=== PATIENT | male | born 1955 | race Caucasian/White ===

== ENCOUNTER 2016-11-26 23:03 | Inpatient (IN) | payer OTHER ==
[2016-11-26] MEDS ORDERED: Aspirin 81 MG Tab.Chew PO ONE (23:06)
[2016-11-26] MEDS ORDERED: Sodium Chloride 0.9% 2.5 ML Syringe FLUSH PRN (23:06)
[2016-11-26] MEDS ORDERED: Albuterol/Ipratropium 3.0-0.5 MG/3 ML Neb Soln NEB ONE (23:06)
[2016-11-26] MEDS ORDERED: Sodium Chloride 0.9% 10 ML Syringe FLUSH PRN (23:06)
[2016-11-26] MEDS ORDERED: Albuterol/Ipratropium 3.0-0.5 MG/3 ML Neb Soln ONE (23:06)
[2016-11-26] MEDS ORDERED: Nitroglycerin 2% Oint 1 GM UD Packet TOP ONE (23:06)
[2016-11-26] MEDS ORDERED: methylPREDNISolone Sodium Succinate 125 MG/2 ML SDV IVPUSH ONE (23:06)
[2016-11-26] MEDS ORDERED: Sodium Chloride 0.9% 1,000 ML IV SCH (23:15)
--- NOTE | 2016-11-26 23:29 | EDM.PDOC ---
ED HISTORY OF PRESENT ILLNESS - General Chief Complaint: Respiratory Problem Stated Complaint: SHORTNESS OF BREATH Time Seen by Provider: 11/26/16 23:05 - History of Present Illness INITIAL COMMENTS - FREE TEXT/NARRATIVE: HISTORY AND PHYSICAL: History of present illness: Patient is a 61-year-old white male with a 30+ pack year history smoking quit about 6 years prior who was recently put on inhalers and antibiotics for a respiratory infection and shortness of breath he presents tonight with increasing shortness of breath he denies chest pain nausea vomiting diaphoresis or other concerns he states he has a history of hypertension but takes no medication Review of systems: As per history of present illness and below otherwise all systems reviewed and negative. Past medical history: As per history of present illness and as reviewed below otherwise noncontributory. Surgical history: As per history of present illness and as reviewed below otherwise noncontributory. Social history: No reported history of drug or alcohol abuse. Family history: As per history of present illness and as reviewed below otherwise noncontributory. Physical exam: HEENT: Atraumatic, normocephalic, pupils reactive, negative for conjunctival pallor or scleral icterus, mucous membranes moist, throat clear, neck supple, nontender, trachea midline. Lungs: Diminished bilaterally with end expiratory wheezing scant basilar crackles noted, breath sounds equal bilaterally, chest nontender. Heart: S1S2, regular, negative for clicks, rubs, or JVD. Abdomen: Soft, nondistended, nontender. Negative for masses or hepatosplenomegaly. Negative for costovertebral tenderness. Pelvis: Stable nontender. Genitourinary: Deferred. Rectal: Deferred. Extremities: Atraumatic, negative for cords or calf pain. Neurovascular unremarkable. Neuro: Awake, alert, oriented. Cranial nerves II through XII unremarkable. Cerebellum unremarkable. Motor and sensory unremarkable throughout. Exam nonfocal. Diagnostics: CBC CMP troponin PT/INR chest x-ray EKG Therapeutics: IV O2 monitor nitro paste 1 inch to chest wall aspirin 324 mg by mouth albuterol ipratropium nebulizer Solu-Medrol 125 mg IV Impression: #1 acute dyspnea #2 hypertension #3 congestive heart failure #4 COPD Definitive disposition and diagnosis as appropriate pending reevaluation and review of above. - Related Data Allergies/ADRs: Allergies Allergy/AdvReac Type Severity Reaction Status Date / Time No Known Allergies Allergy Verified 11/26/16 23:04 Home Meds: Home Meds Albuterol [Ventolin HFA] 0 gm INH ASDIRECTED 11/26/16 [History] Social & Family History - Tobacco Use Smoking Status *Q: Former Smoker (quit 3 years ago) - Alcohol Use Days Per Week of Alcohol Use: 0 - Recreational Drug Use Recreational Drug Use: No Drug Use in Last 12 Months: No ED ROS GENERAL - Review of Systems Review Of Systems: ROS reveals no pertinent complaints other than HPI. ED EXAM, GENERAL - Physical Exam Exam: See Below (See dictation) Course - Vital Signs Text/Narrative:: Patient has marked improvement of his dyspnea in the emergency department he remained without chest pain nausea vomiting or diaphoresis patient's blood pressure remained elevated and nitroglycerin drip was initiated patient will be admitted to the ICU with diagnoses of #1 CHF #2 COPD #3 dyspnea #4 hypertension #5 medical noncompliance Last Recorded V/S: Last Vital Signs Temp 37.1 C 11/26/16 23:07 Pulse 97 11/26/16 23:07 Resp 22 H 11/26/16 23:07 BP 225/141 H 11/26/16 23:07 Pulse Ox 95 11/26/16 23:07 - Orders/Labs/Meds Orders: Active Orders 24 hr Category Date Time Status Cardiac Monitoring [RC] . DIRECTED Care 11/26/16 23:05 Active EKG Documentation Completion [RC] STAT Care 11/26/16 23:05 Active Oxygen Therapy, ED [RC] ASDIRECTED Care 11/26/16 23:05 Active Pulse Oximetry [RC] ASDIRECTED Care 11/26/16 23:05 Active RT Aerosol Therapy [RC] ASDIRECTED Care 11/26/16 23:07 Active Chest 2V [CR] Stat Exams 11/26/16 23:06 Taken Nitroglycerin/D5W [Nitroglycerin 25 MG/D5W 250 ML] Med 11/27/16 00:30 Active 25 mg in 250 ml IV TITRATE Sodium Chloride 0.9% [Normal Saline] 1,000 ml Med 11/26/16 23:15 Active IV STAT Sodium Chloride 0.9% [Saline Flush] Med 11/26/16 23:06 Active 10 ml FLUSH ASDIRECTED PRN Sodium Chloride 0.9% [Saline Flush] Med 11/26/16 23:06 Active 2.5 ml FLUSH ASDIRECTED PRN Saline Lock Insert [OM.PC] Stat Oth 11/26/16 23:05 Ordered Medication Orders Sodium Chloride (Normal Saline) 1,000 mls @ 125 mls/hr IV STAT JARRELL Last Admin: 11/26/16 23:21 Dose: 125 mls/hr Nitroglycerin/Dextrose (Nitroglycerin 25 Mg/D5w 250 Ml) 25 mg in 250 mls @ 12 mls/hr IV TITRATE JARRELL; 20 MCG/MIN PRN Reason: Protocol Sodium Chloride (Saline Flush) 10 ml FLUSH ASDIRECTED PRN PRN Reason: Keep Vein Open Sodium Chloride (Saline Flush) 2.5 ml FLUSH ASDIRECTED PRN PRN Reason: Keep Vein Open Labs: Laboratory Tests 11/26/16 11/26/16 11/26/16 Range/Units 23:35 23:35 23:35 WBC 6.33 (4.0-11.0) K/uL RBC 2.98 L (4.50-5.90) M/uL Hgb 9.1 L (13.0-17.0) g/dL Hct 27.2 L (38.0-50.0) % MCV 91.3 (80.0-98.0) fL MCH 30.5 (27.0-32.0) pg MCHC 33.5 (31.0-37.0) g/dL RDW Std Deviation 44.8 (28.0-62.0) fl RDW Coeff of Marquis 14 (11.0-15.0) % Plt Count 254 (150-400) K/uL MPV 10.20 (7.40-12.00) fL Neut % (Auto) 76.8 (48.0-80.0) % Lymph % (Auto) 15.8 L (16.0-40.0) % Garvin % (Auto) 6.2 (0.0-15.0) % Eos % (Auto) 0.9 (0.0-7.0) % Baso % (Auto) 0.3 (0.0-1.5) % Neut # (Auto) 4.9 (1.4-5.7) K/uL Lymph # (Auto) 1.0 (0.6-2.4) K/uL Garvin # (Auto) 0.4 (0.0-0.8) K/uL Eos # (Auto) 0.1 (0.0-0.7) K/uL Baso # (Auto) 0.0 (0.0-0.1) K/uL Nucleated RBC % 0.0 /100WBC Nucleated RBCs # 0 K/uL INR 1.17 H (0.86-1.11) Sodium 136 (136-146) mmol/L Potassium 3.6 (3.5-5.1) mmol/L Chloride 102 (98-110) mmol/L Carbon Dioxide 18 L (21-31) mmol/L BUN 110 H (6.0-23.0) mg/dL Creatinine 8.8 H (0.6-1.5) mg/dL Est Cr Clr Drug Dosing TNP Estimated GFR (MDRD) 6.2 ml/min Glucose 119 H (60-110) mg/dL Calcium 8.0 L (8.8-10.8) mg/dL Total Bilirubin 0.2 (0.1-1.5) mg/dL AST 35 (5-40) IU/L ALT 22 (8-54) IU/L Alkaline Phosphatase 53 (40-150) Troponin I (0.0-0.29) NG/ML B-Natriuretic Peptide (<100) PG/ML Total Protein 6.2 (6.0-8.0) g/dL Albumin 3.1 L (3.5-5.0) g/dL Globulin 3.1 (2.0-3.5) g/dL Albumin/Globulin Ratio 1.0 L (1.3-2.8) 11/26/16 11/26/16 Range/Units 23:35 23:35 WBC (4.0-11.0) K/uL RBC (4.50-5.90) M/uL Hgb (13.0-17.0) g/dL Hct (38.0-50.0) % MCV (80.0-98.0) fL MCH (27.0-32.0) pg MCHC (31.0-37.0) g/dL RDW Std Deviation (28.0-62.0) fl RDW Coeff of Marquis (11.0-15.0) % Plt Count (150-400) K/uL MPV (7.40-12.00) fL Neut % (Auto) (48.0-80.0) % Lymph % (Auto) (16.0-40.0) % Garvin % (Auto) (0.0-15.0) % Eos % (Auto) (0.0-7.0) % Baso % (Auto) (0.0-1.5) % Neut # (Auto) (1.4-5.7) K/uL Lymph # (Auto) (0.6-2.4) K/uL Garvin # (Auto) (0.0-0.8) K/uL Eos # (Auto) (0.0-0.7) K/uL Baso # (Auto) (0.0-0.1) K/uL Nucleated RBC % /100WBC Nucleated RBCs # K/uL INR (0.86-1.11) Sodium (136-146) mmol/L Potassium (3.5-5.1) mmol/L Chloride (98-110) mmol/L Carbon Dioxide (21-31) mmol/L BUN (6.0-23.0) mg/dL Creatinine (0.6-1.5) mg/dL Est Cr Clr Drug Dosing Estimated GFR (MDRD) ml/min Glucose (60-110) mg/dL Calcium (8.8-10.8) mg/dL Total Bilirubin (0.1-1.5) mg/dL AST (5-40) IU/L ALT (8-54) IU/L Alkaline Phosphatase (40-150) Troponin I 0.27 (0.0-0.29) NG/ML B-Natriuretic Peptide > 3306 H (<100) PG/ML Total Protein (6.0-8.0) g/dL Albumin (3.5-5.0) g/dL Globulin (2.0-3.5) g/dL Albumin/Globulin Ratio (1.3-2.8) Meds: Medications Generic Name Dose Route Start Last Admin Trade Name Freq PRN Reason Stop Dose Admin Sodium Chloride 1,000 mls @ 125 mls/hr 11/26/16 23:15 11/26/16 23:21 Normal Saline IV 125 mls/hr STAT JARRELL Administration Nitroglycerin/Dextrose 25 mg in 250 mls @ 12 mls/hr 04/05/17 00:30 Nitroglycerin 25 Mg/D5w 250 Ml IV TITRATE JARRELL Protocol 20 MCG/MIN Sodium Chloride 10 ml 11/26/16 23:06 Saline Flush FLUSH ASDIRECTED PRN Keep Vein Open Sodium Chloride 2.5 ml 11/26/16 23:06 Saline Flush FLUSH ASDIRECTED PRN Keep Vein Open Discontinued Medications Generic Name Dose Route Start Last Admin Trade Name Freq PRN Reason Stop Dose Admin Albuterol/Ipratropium 3 ml 11/26/16 23:06 11/26/16 23:25 Duoneb 3.0-0.5 Mg/3 Ml NEB 11/26/16 23:07 3 ml ONETIME ONE Administration Albuterol/Ipratropium Confirm 11/26/16 23:06 11/26/16 23:26 Duoneb 3.0-0.5 Mg/3 Ml Administered 11/26/16 23:07 Not Given Dose 3 ml .ROUTE .STK-MED ONE Aspirin 324 mg 11/26/16 23:06 11/26/16 23:20 Aspirin PO 11/26/16 23:07 324 mg ONETIME ONE Administration Furosemide 40 mg 11/27/16 00:13 Lasix IVPUSH 11/27/16 00:14 NOW ONE Methylprednisolone Sodium Succinate 125 mg 11/26/16 23:06 11/26/16 23:21 Solu-Medrol IVPUSH 11/26/16 23:07 125 mg ONETIME ONE Administration Nitroglycerin 1 gm 11/26/16 23:06 11/26/16 23:20 Nitro-Bid 2% TOP 11/26/16 23:07 1 gm ONETIME ONE Administration Departure - Departure Time of Disposition: 00:22 Disposition: Admitted As Inpatient 68 Condition: fair Clinical Impression: Congestive heart failure, Hypertension, COPD (chronic obstructive pulmonary disease) Forms: ED Department Discharge - My Orders Last 24 Hours: My Active Orders 11/26/16 23:05 Cardiac Monitoring [RC] . DIRECTED EKG Documentation Completion [RC] STAT Oxygen Therapy, ED [RC] ASDIRECTED Pulse Oximetry [RC] ASDIRECTED Saline Lock Insert [OM.PC] Stat 11/26/16 23:06 Chest 2V [CR] Stat Sodium Chloride 0.9% [Saline Flush] 10 ml FLUSH ASDIRECTED PRN Sodium Chloride 0.9% [Saline Flush] 2.5 ml FLUSH ASDIRECTED PRN 11/26/16 23:07 RT Aerosol Therapy [RC] ASDIRECTED 11/26/16 23:15 Sodium Chloride 0.9% [Normal Saline] 1,000 ml IV STAT 11/27/16 00:30 Nitroglycerin/D5W [Nitroglycerin 25 MG/D5W 250 ML] 25 mg in 250 ml IV TITRATE - Assessment/Plan Last 24 Hours: My Active Orders 11/26/16 23:05 Cardiac Monitoring [RC] . DIRECTED EKG Documentation Completion [RC] STAT Oxygen Therapy, ED [RC] ASDIRECTED Pulse Oximetry [RC] ASDIRECTED Saline Lock Insert [OM.PC] Stat 11/26/16 23:06 Chest 2V [CR] Stat Sodium Chloride 0.9% [Saline Flush] 10 ml FLUSH ASDIRECTED PRN Sodium Chloride 0.9% [Saline Flush] 2.5 ml FLUSH ASDIRECTED PRN 11/26/16 23:07 RT Aerosol Therapy [RC] ASDIRECTED 11/26/16 23:15 Sodium Chloride 0.9% [Normal Saline] 1,000 ml IV STAT 11/27/16 00:30 Nitroglycerin/D5W [Nitroglycerin 25 MG/D5W 250 ML] 25 mg in 250 ml IV TITRATE
[2016-11-27 00:01] LABS: CHLORIDE,CL 102 mmol/L (98-110); SODIUM,NA 136 mmol/L (136-146)
[2016-11-27] MEDS ORDERED: Furosemide 40 MG/4 ML VIAL IVPUSH ONE (00:13)
[2016-11-27] MEDS ORDERED: Nitroglycerin/D5W 25 MG/250 ML BOTTLE IV SCH (00:30)
[2016-11-27] MEDS ORDERED: Acetaminophen 325 MG Tab PO PRN (00:59)
[2016-11-27] MEDS ORDERED: Albuterol/Ipratropium 3.0-0.5 MG/3 ML Neb Soln NEB PRN (00:59)
--- NOTE | 2016-11-27 01:19 | PCM.HP ---
H&P History of Present Illness - General Date of Service: 11/27/16 Admit Problem/Dx: Admission Diagnosis/Problem Admission Diagnosis/Problem CHF, Congestive heart failure Source of Information: Patient History Limitations: Reports: No limitations - History of Present Illness Initial Comments - Free Text/Narative: 61 yo man with history hypertension,but off meds quite a while experiecing worsening fatigue, exertional and orthostatic dyspnea,says he has not slept for days. denies chest pain or edema. Comes to ER with BP [id number] Onset of Symptoms: Reports: gradual Duration of Symptoms: Reports: Week(s): Improves with: Reports: None Worsens with: Reports: None Associated Symptoms: Reports: no other symptoms - Related Data Allergies/Adverse Reactions: Allergies Allergy/AdvReac Type Severity Reaction Status Date / Time No Known Allergies Allergy Verified 11/26/16 23:04 Home Medications: Home Meds Albuterol [Ventolin HFA] 0 gm INH ASDIRECTED 11/26/16 [History] Past Medical History HEENT History: Reports: Impaired vision Other HEENT History: wears glasses Cardiovascular History: Reports: Hypertension Respiratory History: Reports: Other (see below) Other Respiratory History: former smoker Gastrointestinal History: Reports: Hepatitis (interferon for hvc 6 yrs ago) - Past Surgical History Other Cardiovascular Surgeries/Procedures: off htn meds x 4-5 yrs GI Surgical History: Reports: Other (see below) Other GI Surgeries/Procedures: hernia repair x 3 Social & Family History - Family History Family Medical History: Noncontributory (M F A&W 4 brothers 3 offspring OK) - Tobacco Use Smoking Status *Q: Former Smoker (quit 3 years ago) Tobacco Use Within Last Twelve Months: No Years of Tobacco use: 30 Tobacco Use Comment: quit 6 yrs ago - Caffeine Use Caffeine Use: Reports: Coffee - Alcohol Use Days Per Week of Alcohol Use: 0 - Recreational Drug Use Recreational Drug Use: Yes Drug Use in Last 12 Months: No Recreational Drug Type: Reports: Amphetamines (Speed) (remote> 20 yr parenteral) - Living Situation & Occupation Living situation: Reports: Occupation: employed ([employer], 8yr [employer] ) H&P Review of Systems - Review of Systems: Review Of Systems: See Below General: Reports: fatigue HEENT: Reports: no symptoms Pulmonary: Reports: Shortness of Breath Cardiovascular: Reports: no symptoms Gastrointestinal: Reports: No symptoms Genitourinary: Reports: no symptoms Musculoskeletal: Reports: no symptoms Skin: Reports: no symptoms Psychiatric: Reports: no symptoms Neurological: Reports: No Symptoms Hematologic/Lymphatic: Reports: no symptoms Immunologic: Reports: no symptoms Exam - Exam Exam: See Below - Vital Signs Vital Signs: Last Vital Signs Temp 37.1 C 11/26/16 23:07 Pulse 97 11/26/16 23:07 Resp 22 H 11/26/16 23:07 BP 225/141 H 11/26/16 23:07 Pulse Ox 95 11/26/16 23:07 Weight: 79.379 kg - Exam General: alert, oriented HEENT: Other (hazy lenticular opacities) Neck: trachea midline Lungs: Rales (R base) Cardiovascular: regular rate, regular rhythm Abdomen: normal bowel sounds (Male) Exam: Deferred Rectal (Males) Exam: Deferred Back Exam: normal inspection Extremities: normal inspection Skin: warm Neurological: cranial nerves intact Neuro Extensive - Mental Status: alert, oriented x3, normal mood/affect, memory intact Neuro Extensive - Motor, Sensory, Reflexes: CN II-XII intact (not formally tested) Psychiatric: alert, normal affect - Patient Data Result Diagrams: 11/26/16 23:35 11/26/16 23:35 *Q Meaningful Use (ADM) - VTE *Q VTE Criteria *Q: - Stroke *Q Stroke Criteria *Q: - AMI *Q AMI Criteria *Q: Problem List Initiated/Reviewed/Updated: Yes Orders Last 24hrs: Active Orders 24 hr Category Date Time Status Patient Status [ADT] Routine ADT 11/27/16 00:59 Ordered Oxygen Therapy [RC] PRN Care 11/27/16 00:59 Ordered RT Aerosol Therapy [RC] ASDIRECTED Care 11/27/16 01:06 Ordered Vital Signs [RC] Q4H Care 11/27/16 00:59 Ordered Regular Diet [DIET] Diet 11/27/16 Breakfast Ordered BMP [BASIC METABOLIC PANEL,BMP] [CHEM] Routine Lab 11/27/16 06:00 Ordered Acetaminophen [Tylenol] Med 11/27/16 00:59 Ordered 650 mg PO Q4H PRN Albuterol/Ipratropium [DuoNeb 3.0-0.5 MG/3 ML] Med 11/27/16 00:59 Ordered 3 ml NEB Q4HRRT PRN Resuscitation Status Routine Resus Stat 11/27/16 00:59 Ordered Medication Orders Acetaminophen (Tylenol) 650 mg PO Q4H PRN PRN Reason: Pain (Mild 1-3)/fever Albuterol/Ipratropium (Duoneb 3.0-0.5 Mg/3 Ml) 3 ml NEB Q4HRRT PRN PRN Reason: Shortness Of Breath/wheezing Sodium Chloride (Normal Saline) 1,000 mls @ 25 mls/hr IV STAT JARRELL Last Admin: 11/26/16 23:21 Dose: 125 mls/hr Nitroglycerin/Dextrose (Nitroglycerin 25 Mg/D5w 250 Ml) 25 mg in 250 mls @ 12 mls/hr IV TITRATE JARRELL; 20 MCG/MIN PRN Reason: Protocol Last Admin: 11/27/16 00:34 Dose: 20 mcg/min, 12 mls/hr Sodium Chloride (Saline Flush) 10 ml FLUSH ASDIRECTED PRN PRN Reason: Keep Vein Open Sodium Chloride (Saline Flush) 2.5 ml FLUSH ASDIRECTED PRN PRN Reason: Keep Vein Open Assessment/Plan Comment:: hypertensive urgency little effect of NTG drip, will add catapres, possibly other agents Pt rports lisinopril caused hyperkalemia in past CHF like symptoms have improved already ,certainly not fluid overloaded renal failure ?acute doubt pure dehydration, may be acute on chronic lung mass, bilateral need imaging when stable Hx hepatitis C
[2016-11-27] MEDS: cloNIDine 0.1 MG Tab PO SCH ×2 (01:52→10:42)
[2016-11-27] MEDS ORDERED: Labetalol 100 MG/20 ML MDV IVPUSH ONE (02:17)
--- NOTE | 2016-11-27 09:56 | PCM.PN ---
- General Info Date of Service: 11/27/16 Functional Status: Reports: urinating - Review of Systems General: Reports: No Symptoms HEENT: Reports: no symptoms Pulmonary: Reports: no symptoms Cardiovascular: Reports: No Symptoms Gastrointestinal: Reports: No symptoms Genitourinary: Reports: no symptoms Musculoskeletal: Reports: no symptoms, leg pain (had cramps last night, helped by improvised foot board) Skin: Reports: no symptoms Neurological: Reports: No Symptoms Psychiatric: Reports: no symptoms - Patient Data Vitals - most recent: Last Vital Signs Temp 36.6 C 11/27/16 08:00 Pulse 91 11/27/16 02:45 Resp 23 H 11/27/16 08:00 BP 156/107 H 11/27/16 08:00 Pulse Ox 98 11/27/16 08:00 Weight - most recent: 79 kg I&O - last 24 hours: Intake & Output 11/26/16 11/27/16 11/27/16 22:59 06:59 14:59 Intake Total 250 Output Total 470 Balance -220 Lab Results last 24 hrs: Laboratory Results - last 24 hr 11/27/16 11/27/16 Range/Units 05:04 05:04 Sodium 136 (136-146) mmol/L Potassium 3.9 (3.5-5.1) mmol/L Chloride 103 (98-110) mmol/L Carbon Dioxide 16 L (21-31) mmol/L BUN 106 H (6.0-23.0) mg/dL Creatinine 8.5 H (0.6-1.5) mg/dL Est Cr Clr Drug Dosing 9.66 mL/min Estimated GFR (MDRD) 6.5 ml/min Glucose 143 H (60-110) mg/dL Calcium 7.7 L (8.8-10.8) mg/dL Troponin I 0.24 (0.0-0.29) NG/ML Med Orders - Current: Current Medications Acetaminophen (Tylenol) 650 mg PO Q4H PRN PRN Reason: Pain (Mild 1-3)/fever Albuterol/Ipratropium (Duoneb 3.0-0.5 Mg/3 Ml) 3 ml NEB Q4HRRT PRN PRN Reason: Shortness Of Breath/wheezing Clonidine HCl (Catapres) 0.2 mg PO Q8H JARRELL Last Admin: 11/27/16 01:52 Dose: 0.2 mg Sodium Chloride (Normal Saline) 1,000 mls @ 25 mls/hr IV STAT JARRELL Last Admin: 11/26/16 23:21 Dose: 125 mls/hr Nitroglycerin/Dextrose (Nitroglycerin 25 Mg/D5w 250 Ml) 25 mg in 250 mls @ 12 mls/hr IV TITRATE JARRELL; 20 MCG/MIN PRN Reason: Protocol Last Titration: 11/27/16 06:00 Dose: 5 mcg/min, 3 mls/hr Sodium Chloride (Saline Flush) 10 ml FLUSH ASDIRECTED PRN PRN Reason: Keep Vein Open Sodium Chloride (Saline Flush) 2.5 ml FLUSH ASDIRECTED PRN PRN Reason: Keep Vein Open Discontinued Medications Albuterol/Ipratropium (Duoneb 3.0-0.5 Mg/3 Ml) 3 ml NEB ONETIME ONE Stop: 11/26/16 23:07 Last Admin: 11/26/16 23:25 Dose: 3 ml Albuterol/Ipratropium (Duoneb 3.0-0.5 Mg/3 Ml) Confirm Administered Dose 3 ml .ROUTE .STK-MED ONE Stop: 11/26/16 23:07 Last Admin: 11/26/16 23:26 Dose: Not Given Aspirin (Aspirin) 324 mg PO ONETIME ONE Stop: 11/26/16 23:07 Last Admin: 11/26/16 23:20 Dose: 324 mg Furosemide (Lasix) 40 mg IVPUSH NOW ONE Stop: 11/27/16 00:14 Last Admin: 11/27/16 00:30 Dose: 40 mg Labetalol HCl (Normodyne) 5 mg IVPUSH ONETIME ONE PRN Reason: Protocol Stop: 11/27/16 02:18 Last Admin: 11/27/16 02:45 Dose: 5 mg Methylprednisolone Sodium Succinate (Solu-Medrol) 125 mg IVPUSH ONETIME ONE Stop: 11/26/16 23:07 Last Admin: 11/26/16 23:21 Dose: 125 mg Nitroglycerin (Nitro-Bid 2%) 1 gm TOP ONETIME ONE Stop: 11/26/16 23:07 Last Admin: 11/26/16 23:20 Dose: 1 gm - Exam General: alert HEENT: Pupils equal Neck: trachea midline Lungs: Clear to auscultation Cardiovascular: Regular Rate Abdomen: bowel sounds present (Male) Exam: Deferred Back Exam: normal inspection Extremities: no edema Skin: warm, intact Wound/Incisions: healing well Neurological: no new focal deficit Psy/Mental Status: alert, normal affect - Problem List Review Problem List Initiated/Reviewed/Updated: Yes - My Orders Last 24 Hours: My Active Orders 11/27/16 00:59 Patient Status [ADT] Routine Oxygen Therapy [RC] PRN Vital Signs [RC] Q1H Acetaminophen [Tylenol] 650 mg PO Q4H PRN Albuterol/Ipratropium [DuoNeb 3.0-0.5 MG/3 ML] 3 ml NEB Q4HRRT PRN Resuscitation Status Routine 11/27/16 01:06 RT Aerosol Therapy [RC] ASDIRECTED 11/27/16 02:00 cloNIDine [Catapres] 0.2 mg PO Q8H 11/27/16 11:30 TROPONIN I [CHEM] Q6H 11/27/16 Breakfast Regular Diet [DIET] - Assessment Assessment:: blood pressure better with labetalol, will continue p o along with catapres will stop NTG as ineffective/unnecessary azotemia only marginally better after hydration willl need nephrology evaluation Lung masses imaging and biopsy both of the latter in [place]. Pt willing to be transferred, will arrange - Plan Plan:: hypertensive urgency little effect of NTG drip, will add catapres, possibly other agents Pt rports lisinopril caused hyperkalemia in past CHF like symptoms have improved already ,certainly not fluid overloaded renal failure ?acute doubt pure dehydration, may be acute on chronic lung mass, bilateral need imaging when stable Hx hepatitis C
--- NOTE | 2016-11-27 10:52 | CR ---
EXAM DATE: 11/27/16 PATIENT'S AGE: 61 Patient: JOSELYN BRITTON Facility: [place], [place] Site . Site : 1955 Study: XRay Chest [id number]/4/2017 11:50:50 PM Ordering Physician: Rosanne Daugherty Final Report: INDICATION: Shortness of breath for 3 weeks TECHNIQUE: Chest 2 views. COMPARISON: None FINDINGS: Normal cardiac size. Patchy infiltrates in the left upper and right lower lobes. 3.4 centimeter pulmonary mass in the right lower lobe. Suggestion of a nodular density in the right perihilar region measuring 2.5 cm. No pneumothorax or effusion. No acute osseous abnormality. IMPRESSION: 1. Patchy infiltrates in the left upper and right lower lobes may represent infection. 2. Left lower lobe pulmonary mass and possible right perihilar mass. Chest CT with IV contrast is recommended for further evaluation. Dictated by Ciarra Au MD @ Nov 26 2016 11:57PM (Electronic Signature) Report Signed by Proxy and Original Signed Document filed in the Medical Record. [facility]
--- NOTE | 2016-11-27 11:53 | PCM.DCSUM1 ---
Discharge Summary - Hospital Course Free Text/Narrative:: 61 y o man off medications for hypertension feeling fatigued and dyspneic, especially recumbent, comes to ER with blood pressur [id number] He was initially treated with diuretics til creatinine reported after which he got fluid and a nitroglycerine drip. His dysspnea improved rapidly but not the blood pressure.Dose was limited by headache and he responded better to catapres and labetalol,with pressures [id number] He got hydration overnight, but creatinine remained essentially the same at 8. in asddition the chest X ray showed pulmonary masses, R perihilar and L peripheral, Troponin was top normal and remained so Because of his precarious renal condition and need for specialist care, he was transferred to [facility] with Dr Fisher accepting - Discharge Data Discharge Date: 11/27/16 Discharge Disposition: DC/Tfer to Acute Hospital 02 Condition: Fair - Discharge Diagnosis/Problem(s) (1) Acute renal failure SNOMED Code(s): 21673817 ICD Code: N17.9 - ACUTE KIDNEY FAILURE, UNSPECIFIED Status: Acute Current Visit: Yes Qualifiers: Acute renal failure type: unspecified Qualified Code(s): N17.9 - Acute kidney failure, unspecified (2) COPD (chronic obstructive pulmonary disease) SNOMED Code(s): 33493666 ICD Code: J44.9 - CHRONIC OBSTRUCTIVE PULMONARY DISEASE, UNSPECIFIED Status : Acute Current Visit: Yes Qualifiers: COPD type: unspecified COPD Qualified Code(s): J44.9 - Chronic obstructive pulmonary disease, unspecified (3) Congestive heart failure SNOMED Code(s): 99469780 ICD Code: I50.9 - HEART FAILURE, UNSPECIFIED Status: Acute Current Visit : Yes Qualifiers: Congestive heart failure type: combined Congestive heart failure chronicity : acute Qualified Code(s): I50.41 - Acute combined systolic (congestive) and diastolic (congestive) heart failure (4) Hypertension SNOMED Code(s): 16836066 ICD Code: I10 - ESSENTIAL (PRIMARY) HYPERTENSION Status: Acute Current Visit: Yes Qualifiers: Hypertension type: unspecified secondary hypertension Qualified Code(s): I15.9 - Secondary hypertension, unspecified; I15 - Secondary hypertension - Patient Summary/Data Hospital Course: see above - Patient Instructions Diet: Renal Diet Activity: As Tolerated - Discharge Plan Prescriptions/Med Rec: Sodium Chloride 0.9% [Normal Saline] 100 ml IV STAT #1000 bag Home Medications: Home Meds Albuterol [Ventolin HFA] 0 gm INH ASDIRECTED 11/26/16 [History] Sodium Chloride 0.9% [Normal Saline] 100 ml IV STAT #1000 bag 11/27/16 [Rx] Forms: ED Department Discharge Referrals: PCP,None [Primary Care Provider] - - Discharge Summary/Plan Comment DC Time >30 min.: No - General Info Date of Service: 11/27/16 - Patient Data Vitals - Most Recent: Last Vital Signs Temp 36.6 C 11/27/16 08:00 Pulse 91 11/27/16 02:45 Resp 18 11/27/16 10:00 BP 171/119 H 11/27/16 10:42 Pulse Ox 98 11/27/16 08:00 Weight - Most Recent: 79 kg I&O - Last 24 hours: Intake & Output 11/26/16 11/27/16 11/27/16 22:59 06:59 14:59 Intake Total 250 Output Total 470 Balance -220 Lab Results - Last 24 hrs: Laboratory Results - last 24 hr 11/27/16 11/27/16 Range/Units 05:04 05:04 Sodium 136 (136-146) mmol/L Potassium 3.9 (3.5-5.1) mmol/L Chloride 103 (98-110) mmol/L Carbon Dioxide 16 L (21-31) mmol/L BUN 106 H (6.0-23.0) mg/dL Creatinine 8.5 H (0.6-1.5) mg/dL Est Cr Clr Drug Dosing 9.66 mL/min Estimated GFR (MDRD) 6.5 ml/min Glucose 143 H (60-110) mg/dL Calcium 7.7 L (8.8-10.8) mg/dL Troponin I 0.24 (0.0-0.29) NG/ML Med Orders - Current: Current Medications Acetaminophen (Tylenol) 650 mg PO Q4H PRN PRN Reason: Pain (Mild 1-3)/fever Albuterol/Ipratropium (Duoneb 3.0-0.5 Mg/3 Ml) 3 ml NEB Q4HRRT PRN PRN Reason: Shortness Of Breath/wheezing Clonidine HCl (Catapres) 0.2 mg PO Q8H JARRELL Last Admin: 11/27/16 10:42 Dose: 0.2 mg Sodium Chloride (Normal Saline) 1,000 mls @ 25 mls/hr IV STAT JARRELL Last Admin: 11/26/16 23:21 Dose: 125 mls/hr Labetalol HCl (Normodyne) 100 mg PO TID JARRELL Sodium Chloride (Saline Flush) 10 ml FLUSH ASDIRECTED PRN PRN Reason: Keep Vein Open Sodium Chloride (Saline Flush) 2.5 ml FLUSH ASDIRECTED PRN PRN Reason: Keep Vein Open Thiamine HCl (Vitamin B-1) 100 mg PO BEDTIME JARRELL Discontinued Medications Albuterol/Ipratropium (Duoneb 3.0-0.5 Mg/3 Ml) 3 ml NEB ONETIME ONE Stop: 11/26/16 23:07 Last Admin: 11/26/16 23:25 Dose: 3 ml Albuterol/Ipratropium (Duoneb 3.0-0.5 Mg/3 Ml) Confirm Administered Dose 3 ml .ROUTE .STK-MED ONE Stop: 11/26/16 23:07 Last Admin: 11/26/16 23:26 Dose: Not Given Aspirin (Aspirin) 324 mg PO ONETIME ONE Stop: 11/26/16 23:07 Last Admin: 11/26/16 23:20 Dose: 324 mg Furosemide (Lasix) 40 mg IVPUSH NOW ONE Stop: 11/27/16 00:14 Last Admin: 11/27/16 00:30 Dose: 40 mg Nitroglycerin/Dextrose (Nitroglycerin 25 Mg/D5w 250 Ml) 25 mg in 250 mls @ 12 mls/hr IV TITRATE JARRELL; 20 MCG/MIN PRN Reason: Protocol Last Titration: 11/27/16 06:00 Dose: 5 mcg/min, 3 mls/hr Labetalol HCl (Normodyne) 5 mg IVPUSH ONETIME ONE PRN Reason: Protocol Stop: 11/27/16 02:18 Last Admin: 11/27/16 02:45 Dose: 5 mg Methylprednisolone Sodium Succinate (Solu-Medrol) 125 mg IVPUSH ONETIME ONE Stop: 11/26/16 23:07 Last Admin: 11/26/16 23:21 Dose: 125 mg Nitroglycerin (Nitro-Bid 2%) 1 gm TOP ONETIME ONE Stop: 11/26/16 23:07 Last Admin: 11/26/16 23:20 Dose: 1 gm *Q Meaningful Use (DIS) - VTE *Q VTE Criteria *Q: - Stroke *Q Stroke Criteria *Q: - AMI *Q AMI Criteria *Q:
[2016-11-27 12:38] VITALS: BP 164/119
[2016-11-27] MEDS ORDERED: Labetalol 100 MG Tab PO SCH (14:00)
[2016-11-27] MEDS ORDERED: Thiamine 100 MG Tab PO SCH (21:00)
== END 2016-11-27 13:10 | DRG 682 ==
LOC: MW.ED 23:03 → MW.ICU 11-27 00:24
PROVIDERS: ADMIT Internal Medicine; ATTEND Internal Medicine
DX: N17.9 Acute kidney failure, unspecified (principal); I50.41 Acute combined systolic (congestive) and diastolic (congestive) heart failure; I16.0 Hypertensive urgency; J44.9 Chronic obstructive pulmonary disease, unspecified; I10 Essential (primary) hypertension; R91.8 Other nonspecific abnormal finding of lung field; R79.89 Other specified abnormal findings of blood chemistry; Z79.899 Other long term (current) drug therapy; Z87.891 Personal history of nicotine dependence; Z86.19 Personal history of other infectious and parasitic diseases
CPT/HCPCS: 36415; 71020; 71020-26; 80048; 80053; 83880; 84484; 85025; 85610; 87804; 93005; 94664; 96361; 96365; 96375; 99284; 99285-25; A9270-GY; J1940; J2930; J7040

== ENCOUNTER 2017-04-21 07:29 | Day surgery (SDC) | payer OTHER ==
[2017-04-21] MEDS ORDERED: Lidocaine 2% 5 ML SDV ONE (07:30)
[2017-04-21] MEDS ORDERED: Midazolam 1 MG/ML 2 ML SDV ONE (07:30)
[2017-04-21] MEDS ORDERED: fentaNYL 100 MCG/2 ML SDV ONE (07:30)
[2017-04-21] MEDS ORDERED: Lactated Ringers 1,000 ML IV SCH (08:00)
[2017-04-21] MEDS ORDERED: Sodium Chloride 0.9% 1,000 ML IV SCH (08:15)
--- NOTE | 2017-04-21 08:27 | PCM.PREANE ---
Preanesthetic Assessment - Anesthesia/Transfusion/Family Hx Anesthesia History: Prior Anesthesia Without Reaction Family History of Anesthesia Reaction: No Transfusion History: No Prior Transfusion(s) Intubation History: Unknown - Review of Systems General: No Symptoms Pulmonary: No Symptoms Cardiovascular: No Symptoms Gastrointestinal: No Symptoms Neurological: No Symptoms Other: Reports: None - Physical Assessment O2 Sat by Pulse Oximetry: 98 Respiratory Rate: 16 Vital Signs: Last Vital Signs Temp 36.4 C 04/21/17 08:11 Pulse 55 L 04/21/17 08:11 Resp 16 04/21/17 08:11 BP 115/72 04/21/17 08:11 Pulse Ox 98 04/21/17 08:11 Height: 1.78 m Weight: 77.111 kg ASA Class: 3 Mental Status: Alert & Oriented x3 Airway Class: Mallampati = 2 Dentition: Reports: Missing Tooth/Teeth (multiple upper and lower) Thyro-Mental Finger Breadths: 3 Mouth Opening Finger Breadths: 3 ROM/Head Extension: Full Lungs: Clear to Auscultation, Normal Respiratory Effort Cardiovascular: Regular Rate, Regular Rhythm - Lab Values: Laboratory Last Values WBC 8.23 K/uL (4.0-11.0) 04/21/17 08:03 RBC 3.43 M/uL (4.50-5.90) L 04/21/17 08:03 Hgb 10.6 g/dL (13.0-17.0) L 04/21/17 08:03 Hct 31.8 % (38.0-50.0) L 04/21/17 08:03 MCV 92.7 fL (80.0-98.0) 04/21/17 08:03 MCH 30.9 pg (27.0-32.0) 04/21/17 08:03 MCHC 33.3 g/dL (31.0-37.0) 04/21/17 08:03 RDW Std Deviation 45.7 fl (28.0-62.0) 04/21/17 08:03 RDW Coeff of Marquis 13 % (11.0-15.0) 04/21/17 08:03 Plt Count 277 K/uL (150-400) 04/21/17 08:03 MPV 9.20 fL (7.40-12.00) 04/21/17 08:03 Nucleated RBC % 0.0 /100WBC 04/21/17 08:03 Nucleated RBCs # 0 K/uL 04/21/17 08:03 - Allergies Allergies/Adverse Reactions: Allergies Allergy/AdvReac Type Severity Reaction Status Date / Time No Known Allergies Allergy Verified 11/26/16 23:04 - Blood Blood Available: No - Anesthesia Plan Pre-Op Medication Ordered: None - Acknowledgements Anesthesia Type Planned: MAC Pt an Appropriate Candidate for the Planned Anesthesia: Yes Alternatives and Risks of Anesthesia Discussed w Pt/Guardian: Yes Pt/Guardian Understands and Agrees with Anesthesia Plan: Yes PreAnesthesia Questionnaire HEENT History: Cardiovascular History: Reports: High Cholesterol, Hypertension Respiratory History: Gastrointestinal History: Reports: Hepatitis Other Gastrointestinal History: hx hepatitis C, has been treated and is cleared Genitourinary History: Reports: Dialysis, Renal Disease Other Genitourinary History: chronic renal failure, dialysis 3 times weekly - Past Surgical History Head Surgeries/Procedures: Reports: None GI Surgical History: Reports: Hernia, Inguinal, Hernia Repair/Other, Other (See Below) Other GI Surgeries/Procedures: inguinal hernia repair x2, umbilical hernia repair x1 Other Male Surgeries/Procedures: creation of eli A-V fistula Other Surgical History Comment: creation of Eli A-V fistula, also right IJ dyalisis cath placement - SUBSTANCE USE Smoking Status *Q: Former Smoker Tobacco Use Within Last Twelve Months: No Second Hand Smoke Exposure: No Days Per Week of Alcohol Use: 0 Recreational Drug Use History: Yes Recreational Drug Type: - HOME MEDS Home Medications: Home Meds Calcium Carbonate 500 mg PO TID 04/15/17 [History] Ferrous Sulfate 325 mg PO DAILY 04/15/17 [History] Lisinopril 40 mg PO DAILY 04/15/17 [History] Metoprolol Tartrate 50 mg PO BID 04/15/17 [History] Multivitamin [Multivitamins] 1 tab PO DAILY 04/15/17 [History] NIFEdipine [Nifedipine] 2 tab PO TID 04/15/17 [History] - CURRENT (IN HOUSE) MEDS Current Meds: Current Medications Sodium Chloride (Normal Saline) 1,000 mls @ 125 mls/hr IV ASDIRECTED JARRELL Last Admin: 04/21/17 08:10 Dose: 125 mls/hr Discontinued Medications Fentanyl (Sublimaze) Confirm Administered Dose 100 mcg .ROUTE .STK-MED ONE Stop: 04/21/17 07:31 Lactated Ringer's (Ringers, Lactated) 1,000 mls @ 125 mls/hr IV ASDIRECTED JARRELL Lidocaine (Xylocaine-Mpf 2%) Confirm Administered Dose 5 ml .ROUTE .STK-MED ONE Stop: 04/21/17 07:31 Midazolam HCl (Versed 1 Mg/Ml) Confirm Administered Dose 2 mg .ROUTE .STK-MED ONE Stop: 04/21/17 07:31
[2017-04-21] MEDS ORDERED: Propofol 200 MG/20 ML SDV ONE (09:31)
[2017-04-21] MEDS ORDERED: Lidocaine 1% 20 ML MDV ONE (09:32)
[2017-04-21] MEDS ORDERED: Bupivacaine 0.5% 10 ML SDV ONE (09:32)
--- NOTE | 2017-04-21 10:30 | PCM.OPNOTE ---
- General Post-Op/Procedure Note Date of Surgery/Procedure: 04/21/17 Operative Procedure(s): Removal of hemodialysis access catheter Pre Op Diagnosis: Chronic renal failure with functioning radiocephalic fistula on the left side. Desire for removal of the external hemodialysis access catheter. Post-Op Diagnosis: Same Anesthesia Technique: Local, MAC (ASA IV) Primary Surgeon: Seamus Nicholson Supervisor Sample: Emily Gan Fluid Replacement, Intraop: 150 EBL in mLs: 5 Condition: Good Free Text/Narrative:: Dictation [id number]
[2017-04-21 11:34] VITALS: BP 125/80
--- NOTE | 2017-04-21 18:39 | OR ---
SURGEON: Seamus Nicholson M.D. DATE OF PROCEDURE: 04/21/2017 OPERATION PERFORMED: Removal of right internal jugular venous hemodialysis catheter. ANESTHESIA: Local MAC. FIELD OBSERVER: VENKAT Munoz student. ASA CLASSIFICATION: IV. PREOPERATIVE DIAGNOSIS: Desire for external hemodialysis catheter removal with functioning left radiocephalic fistula. POSTOPERATIVE DIAGNOSIS: Desire for external hemodialysis catheter removal with functioning left radiocephalic fistula. ESTIMATED BLOOD LOSS: 5 mL. FLUID REPLACEMENT: 150 mL of crystalloid. DESCRIPTION OF PROCEDURE: The patient was taken to the operating room and placed on the operating table in the supine position. Time-out was called for appropriate identification of the patient and procedure. Surgical site had been marked prior to the patient entering the operating room. Sedation was provided. The right chest was prepped with Betadine solution. Sterile drapes were applied. The Dacron cuff could easily be palpated. The skin overlying this was infiltrated with 1% Xylocaine and 0.5% Marcaine solution. The skin incision was made and using electrocautery deepened down to the Dacron cuff. The Dacron cuff was completely mobilized and freed from the surrounding tissue. The catheter was then clamped and cut. The external portion was removed and then the internal portion including the cuff was removed. Pressure was held over the insertion site in the right internal jugular for a timed 2-minute. When pressure was released, there was no bleeding. The wound was inspected for hemostasis and small bleeding sites were electrocoagulated. The incision was closed in 2 layers approximating the subcutaneous tissue with 3-0 Polysorb and the skin with subcuticular 4-0 Monocryl. The incision was Steri-Stripped. No sutures were placed at the exit site on the right anterior chest. The incision was then dressed with a sterile Tegaderm pad. Sponge, needle, and instrument counts were all correct. The patient tolerated the procedure well and was taken to recovery room in stable condition. SERA / LINA /[id number]
== END 2017-04-21 11:18 | disposition home or self-care (01) ==
LOC: MW.SDS 07:29
PROVIDERS: ATTEND Surgery
DX: Z49.01 Encounter for fitting and adjustment of extracorporeal dialysis catheter (principal); I12.9 Hypertensive chronic kidney disease with stage 1 through stage 4 chronic kidney disease, or unspecified chronic kidney disease; N18.9 Chronic kidney disease, unspecified; E78.00 Pure hypercholesterolemia, unspecified; Z79.899 Other long term (current) drug therapy; Z98.890 Other specified postprocedural states; Z86.19 Personal history of other infectious and parasitic diseases; Z87.891 Personal history of nicotine dependence
CPT/HCPCS: 36415; 36589; 80048; 83880; 85027; 93005; J2250; J3010; J7040; 00400; 88300; J2704

== ENCOUNTER 2020-02-18 11:45 | Day surgery (SDC) | payer OTHER ==
[~2020-02-18 11:45] MED LIST: Lactated Ringers 1,000 ML IV SCH; Sodium Chloride 0.9% 1,000 ML IV SCH; Sodium Chloride 0.9% 10 ML SDV IV PRN; Sodium Chloride 0.9% 10 ML Syringe FLUSH PRN; Sodium Chloride 0.9% 2.5 ML Syringe FLUSH PRN; Sodium Chloride 0.9% 500 ML IV SCH
[2020-02-18 12:43] LABS: CARBON DIOXIDE,CO2 25.5 mmol/L (21.0-32.0); POTASSIUM,K 4.5 mmol/L (3.5-5.1)
[2020-02-18] MEDS ORDERED: Lidocaine 2% 5 ML SDV ONE (12:54)
[2020-02-18] MEDS ORDERED: Propofol 200 MG/20 ML SDV ONE ×3 (12:54→14:01)
[2020-02-18] MEDS ORDERED: fentaNYL 100 MCG/2 ML SDV ONE (12:55)
--- NOTE | 2020-02-18 13:41 | PCM.PREANE ---
Preanesthetic Assessment - Anesthesia/Transfusion/Family Hx Anesthesia History: Prior Anesthesia Without Reaction Family History of Anesthesia Reaction: No Transfusion History: Prior Transfusion Without Reaction Intubation History: Unknown - Review of Systems General: No Symptoms Pulmonary: No Symptoms Cardiovascular: No Symptoms Gastrointestinal: No Symptoms (screening colonoscopy) Neurological: No Symptoms Other: Reports: None - Physical Assessment Vital Signs: Last Vital Signs Temp 36.2 C 02/18/20 13:32 Pulse 75 02/18/20 13:32 Resp 16 02/18/20 13:32 BP 139/78 02/18/20 13:32 Pulse Ox 97 02/18/20 13:32 Height: 5 ft 10 in Weight: 78.471 kg ASA Class: 4 Mental Status: Alert & Oriented x3 Airway Class: Mallampati = 2 Dentition: Reports: Edentulous Thyro-Mental Finger Breadths: 3 Mouth Opening Finger Breadths: 3 ROM/Head Extension: Limited/Partial Lungs: Normal Respiratory Effort, Wheezing (upper right lobe, sats 98% on RA) Cardiovascular: Regular Rate, Regular Rhythm - Lab Values: Laboratory Last Values Sodium 134 mmol/L (136-148) L 02/18/20 12:09 Potassium 4.5 mmol/L (3.5-5.1) 02/18/20 12:09 Chloride 95 mmol/L (98-107) L 02/18/20 12:09 Carbon Dioxide 25.5 mmol/L (21.0-32.0) 02/18/20 12:09 BUN 33 mg/dL (7.0-18.0) H 02/18/20 12:09 Creatinine 6.8 mg/dL (0.8-1.3) H 02/18/20 12:09 Est Cr Clr Drug Dosing 11.63 mL/min 02/18/20 12:09 Estimated GFR (MDRD) 8.3 ml/min 02/18/20 12:09 Glucose 99 mg/dL (74-106) 02/18/20 12:09 Calcium 9.3 mg/dL (8.5-10.1) 02/18/20 12:09 - Allergies Allergies/Adverse Reactions: Allergies Allergy/AdvReac Type Severity Reaction Status Date / Time No Known Allergies Allergy Verified 02/18/20 12:13 - Blood Blood Available: No - Anesthesia Plan Pre-Op Medication Ordered: None - Acknowledgements Anesthesia Type Planned: MAC Pt an Appropriate Candidate for the Planned Anesthesia: Yes Alternatives and Risks of Anesthesia Discussed w Pt/Guardian: Yes Pt/Guardian Understands and Agrees with Anesthesia Plan: Yes PreAnesthesia Questionnaire HEENT History: Reports: Other (See Below) Other HEENT History: wears glasses Cardiovascular History: Reports: Hypertension Respiratory History: Reports: Other (See Below) (former smoker quit 6-7 years ago) Gastrointestinal History: Reports: Hepatitis Other Gastrointestinal History: hx hepatitis C, has been treated and is cleared Genitourinary History: Reports: Dialysis Other Genitourinary History: chronic renal failure, dialysis 3 times weekly since november 2016- last dyalisis yesterday Hematologic History: Reports: Blood Transfusion(s) - Past Surgical History Head Surgeries/Procedures: Reports: None Cardiovascular Surgical History: Reports: Other (See Below) Other Cardiovascular Surgeries/Procedures: creation of AV fistula left arm GI Surgical History: Reports: Colonoscopy (last one 5 years ago), Hernia, Abdominal, Hernia, Inguinal Other GI Surgeries/Procedures: Umbilical hernia repair Other Male Surgeries/Procedures: creation of aretha A-V fistula - SUBSTANCE USE Smoking Status *Q: Former Smoker Tobacco Use Within Last Twelve Months: No Recreational Drug Use History: No - HOME MEDS Home Medications: Home Meds Lisinopril 40 mg PO BID 04/15/17 [History] Multivitamin [Multivitamins] 1 tab PO DAILY 04/15/17 [History] NIFEdipine [Nifedipine] 60 mg PO BID 04/15/17 [History] carvediloL [Coreg] 12.5 mg PO DAILY 02/15/20 [History] - CURRENT (IN HOUSE) MEDS Current Meds: Current Medications Sodium Chloride (Normal Saline) 500 mls @ 75 mls/hr IV ASDIRECTED JARRELL Sodium Chloride (Saline Flush) 10 ml FLUSH ASDIRECTED PRN PRN Reason: Keep Vein Open Sodium Chloride (Saline Flush) 2.5 ml FLUSH ASDIRECTED PRN PRN Reason: Keep Vein Open Sodium Chloride (Saline Flush) 10 ml FLUSH ASDIRECTED PRN PRN Reason: Keep Vein Open Sodium Chloride (Saline Flush) 2.5 ml FLUSH ASDIRECTED PRN PRN Reason: Keep Vein Open Sodium Chloride (Normal Saline) 10 ml IV ASDIRECTED PRN PRN Reason: IV Use Discontinued Medications Fentanyl (Sublimaze) Confirm Administered Dose 100 mcg .ROUTE .STK-MED ONE Stop: 02/18/20 12:56 Lactated Ringer's (Ringers, Lactated) 1,000 mls @ 125 mls/hr IV ASDIRECTED JARRELL Sodium Chloride (Normal Saline) 1,000 mls @ 75 mls/hr IV ASDIRECTED JARRELL Lidocaine (Xylocaine-Mpf 2%) Confirm Administered Dose 5 ml .ROUTE .STK-MED ONE Stop: 02/18/20 12:55 Propofol (Diprivan 20 Ml) Confirm Administered Dose 400 mg .ROUTE .STK-MED ONE Stop: 02/18/20 12:55
--- NOTE | 2020-02-18 14:44 | PCM.OPNOTE ---
- General Post-Op/Procedure Note Date of Surgery/Procedure: 02/18/20 Operative Procedure(s): Diagnostic colonoscopy with polypectomy Findings: Cecal polyp, hepatic flexure polyp x 2, sigmoid colon polyp x 3, rectal polyp, diverticulosis Pre Op Diagnosis: History of colon polyps Post-Op Diagnosis: Cecal polyp, hepatic flexure polyp x 2, sigmoid colon polyp x 3, rectal polyp, diverticulosis Anesthesia Technique: [facility] [place] Primary Surgeon: Monserrat Clark Condition: Good Free Text/Narrative:: Intake & Output 02/17/20 02/18/20 02/18/20 22:59 06:59 14:59 Intake Total 500 Balance 500
--- NOTE | 2020-02-18 15:16 | PCM.POSTAN ---
POST ANESTHESIA ASSESSMENT - VITAL SIGNS Vital Signs: Last Vital Signs Temp 36.2 C 02/18/20 13:32 Pulse 74 02/18/20 14:44 Resp 16 02/18/20 14:44 BP 103/71 02/18/20 14:44 Pulse Ox 97 02/18/20 14:44 - RESPIRATORY Respiratory Status: Respiratory Rate WNL - CARDIOVASCULAR CV Status: Pulse Rate WNL, Slow Pulse Rate - GASTROINTESTINAL GI Status: No Symptoms - POST OP HYDRATION Hydration Status: Adequate & Stable
--- NOTE | 2020-02-18 15:16 | PCM48HPAN ---
Post Anesthesia Note - EVALUATION WITHIN 48HRS OF ANESTHETIC Vital Signs in Normal Range: Yes Patient Participated in Evaluation: Yes Respiratory Function Stable: Yes Airway Patent: Yes Cardiovascular Function Stable: Yes Hydration Status Stable: Yes Pain Control Satisfactory: Yes Nausea and Vomiting Control Satisfactory: Yes Mental Status Recovered: Yes Vital Signs: Last Vital Signs Temp 36.2 C 02/18/20 13:32 Pulse 74 02/18/20 14:44 Resp 16 02/18/20 14:44 BP 103/71 02/18/20 14:44 Pulse Ox 97 02/18/20 14:44
[2020-02-18 15:38] VITALS: BP 121/85; PULSE 71
--- NOTE | 2020-02-20 21:15 | OR ---
SURGEON: MONSERRAT CLARK MD DATE OF PROCEDURE: 02/18/2020 PREOPERATIVE DIAGNOSIS: History of colon polyps. POSTOPERATIVE DIAGNOSES: 1. Cecal polyp. 2. Hepatic flexure polyps x2. 3. Sigmoid colon polyps x3. 4. Rectal polyps. 5. Diverticulosis. PROCEDURE PERFORMED: Diagnostic colonoscopy with polypectomy. PRIMARY SURGEON: Monserrat Clark MD ANESTHESIA: MAC. INSTRUMENT USED: Olympus colonoscope. EXTENT OF EXAM: To the cecum. PREPARATION: Good. LIMITATIONS: None. INDICATIONS FOR EXAMINATION: The patient is a 64-year-old male who presents for repeat colonoscopy. He has a history of colon polyps. The patient and I discussed the procedure, expected perioperative course, and the risks. He verbalized understanding and wishes to proceed. PROCEDURE IN DETAIL: The patient was brought into the endoscopy suite and placed in a left lateral decubitus position. A time-out was completed verifying the patient's name, age, date of , allergies, and procedure to be performed. Monitored anesthesia care was induced and continuous oxygen was provided via nasal cannula throughout the procedure. After adequate sedation was achieved, a digital rectal exam was performed. This exam was within normal limits. A well-lubricated colonoscope was inserted in the rectum and advanced under direct visualization to the level of the cecum. The cecum was identified by both visual and anatomic landmarks. A photograph was taken of the cecal cap; however, I was unable to retroflex the scope within the cecum due to looping of the scope more proximally. The scope was then fully withdrawn while examining the color, texture, anatomy, and integrity of mucosa from the cecum to the anal canal. In the cecal cap adjacent to the appendiceal orifice was a small sessile cecal polyp. This was removed in piecemeal fashion using cold biopsy forceps. At the hepatic flexure, the patient was noted to have two sessile hepatic flexure polyps. These were around corners and difficult to access, but were eventually removed in piecemeal fashion using cold biopsy forceps. Throughout the sigmoid colon, the patient was noted to have three more sigmoid colon polyps. These were all removed in piecemeal fashion using cold biopsy forceps. The scope was then brought into the rectum and retroflexed to allow visualization of the anal canal opening. Upon retroflexion, a rectal polyp was noted. This was removed using a cold snare. The polyp was then suctioned and removed. The rectal biopsy site was hemostatic. A photograph was taken. The scope was straightened out and fully withdrawn. The cecum to anus time was 46 minutes. The patient tolerated the procedure well and was transferred to the PACU in stable condition. ENDOSCOPIC DIAGNOSES: 1. Cecal polyp. 2. Hepatic flexure polyps x2. 3. Sigmoid colon polyps x3. 4. Rectal polyps. 5. Diverticulosis. RECOMMENDATIONS: Follow up in clinic in 2 weeks. KEYLA MILLS /[id number]
== END 2020-02-18 15:25 | disposition home or self-care (01) ==
LOC: MW.SDS 11:45
PROVIDERS: ATTEND Surgery
DX: Z12.11 Encounter for screening for malignant neoplasm of colon (principal); D12.0 Benign neoplasm of cecum; D12.3 Benign neoplasm of transverse colon; D12.5 Benign neoplasm of sigmoid colon; D12.8 Benign neoplasm of rectum; I12.9 Hypertensive chronic kidney disease with stage 1 through stage 4 chronic kidney disease, or unspecified chronic kidney disease; N18.9 Chronic kidney disease, unspecified; K57.30 Diverticulosis of large intestine without perforation or abscess without bleeding; Z98.890 Other specified postprocedural states; Z80.0 Family history of malignant neoplasm of digestive organs; Z87.891 Personal history of nicotine dependence; Z79.899 Other long term (current) drug therapy; Z86.010 Personal history of colon polyps; Z99.2 Dependence on renal dialysis
CPT/HCPCS: 36415; 45380; 45385; 80048; J2001; J2704; J3010; 00812; 88305

== ENCOUNTER 2021-07-24 06:05 | Day surgery (SDC) | payer OTHER ==
[~2021-07-24 06:05] MED LIST changes: -Sodium Chloride 0.9% 1,000 ML IV SCH; -Sodium Chloride 0.9% 10 ML SDV IV PRN; +Sodium Chloride 0.9% 20 ML SDV IV PRN; -Sodium Chloride 0.9% 500 ML IV SCH
--- NOTE | 2021-07-24 07:10 | PCM.PREANE ---
Preanesthetic Assessment - Procedure Proposed Procedure: Colonoscopy - Anesthesia/Transfusion/Family Hx Anesthesia History: Prior Anesthesia Without Reaction Family History of Anesthesia Reaction: No Transfusion History: No Prior Transfusion(s) Intubation History: Unknown - Review of Systems General: No Symptoms Pulmonary: No Symptoms (Former Smoker) Cardiovascular: No Symptoms (HTN) Gastrointestinal: No Symptoms (H/0 Diverticulosis and colon polyps) Neurological: No Symptoms Other: Reports: None (CRI on dialysis , , ), Liver Problems (h/o Hep C which has been treated and cleared) - Physical Assessment NPO Status Date: 07/22/21 NPO Status Time: 22:00 Vital Signs: Last Vital Signs Temp 97.9 F 07/24/21 06:35 Pulse 76 07/24/21 06:35 Resp 14 07/24/21 06:35 BP 160/91 H 07/24/21 06:35 Pulse Ox 98 07/24/21 06:35 Height: 5 ft 10 in Weight: 78.925 kg ASA Class: 3 Mental Status: Alert & Oriented x3 Airway Class: Mallampati = 2 Dentition: Reports: Edentulous Thyro-Mental Finger Breadths: 3 Mouth Opening Finger Breadths: 3 ROM/Head Extension: Full Lungs: Clear to Auscultation, Normal Respiratory Effort Cardiovascular: Regular Rate, Regular Rhythm - Allergies Allergies/Adverse Reactions: Allergies Allergy/AdvReac Type Severity Reaction Status Date / Time No Known Allergies Allergy Verified 07/18/21 07:13 - Acknowledgements Anesthesia Type Planned: General Anesthesia Pt an Appropriate Candidate for the Planned Anesthesia: Yes Alternatives and Risks of Anesthesia Discussed w Pt/Guardian: Yes Pt/Guardian Understands and Agrees with Anesthesia Plan: Yes PreAnesthesia Questionnaire HEENT History: Reports: Other (See Below) Other HEENT History: wears glasses/contacts Cardiovascular History: Reports: Hypertension Respiratory History: Reports: None Gastrointestinal History: Reports: Colon Polyp, Diverticulosis, Hepatitis Other Gastrointestinal History: hx hepatitis C, has been treated and is cleared Genitourinary History: Reports: Chronic Renal Insuffiency, Dialysis Other Genitourinary History: chronic renal failure, dialysis 3 times weekly (- & friday) Musculoskeletal History: Reports: None Neurological History: Reports: None Psychiatric History: Reports: None Endocrine/Metabolic History: Reports: None Hematologic History: Reports: None Immunologic History: Reports: None Oncologic (Cancer) History: Reports: None Dermatologic History: Reports: None - Past Surgical History Head Surgeries/Procedures: Reports: None HEENT Surgical History: Reports: None Cardiovascular Surgical History: Reports: Other (See Below) Other Cardiovascular Surgeries/Procedures: creation of AV fistula left arm Respiratory Surgical History: Reports: None GI Surgical History: Reports: Colonoscopy, Hernia, Abdominal, Hernia, Inguinal Other GI Surgeries/Procedures: Umbilical hernia repair, inguinal hernia repair Endocrine Surgical History: Reports: None Neurological Surgical History: Reports: None Musculoskeletal Surgical History: Reports: None Oncologic Surgical History: Reports: None Dermatological Surgical History: Reports: None - SUBSTANCE USE Tobacco Use Status *Q: Former Tobacco User Tobacco Use Within Last Twelve Months: No - HOME MEDS Home Medications: Home Meds Lisinopril 40 mg PO BID 04/15/17 [History] Multivitamin [Multivitamins] 1 tab PO DAILY 04/15/17 [History] NIFEdipine [Nifedipine] 80 mg PO DAILY 04/15/17 [History] Calcium Carbonate [Tums] 1 tab.chew CHEW ASDIRECTED 07/18/21 [History] - CURRENT (IN HOUSE) MEDS Current Meds: Current Medications Lactated Ringer's (Ringers, Lactated) 1,000 mls @ 125 mls/hr IV ASDIRECTED JARRELL Sodium Chloride (Sodium Chloride 0.9% 10 Ml Syringe) 10 ml FLUSH ASDIRECTED PRN PRN Reason: Keep Vein Open Sodium Chloride (Sodium Chloride 0.9% 2.5 Ml Syringe) 2.5 ml FLUSH ASDIRECTED PRN PRN Reason: Keep Vein Open Sodium Chloride (Sodium Chloride 0.9% 10 Ml Syringe) 10 ml FLUSH ASDIRECTED PRN PRN Reason: Keep Vein Open Sodium Chloride (Sodium Chloride 0.9% 2.5 Ml Syringe) 2.5 ml FLUSH ASDIRECTED PRN PRN Reason: Keep Vein Open Sodium Chloride (Sodium Chloride 0.9% 20 Ml Sdv) 10 ml IV ASDIRECTED PRN PRN Reason: IV Use
[2021-07-24] MEDS ORDERED: fentaNYL 100 MCG/2 ML SDV ONE (07:16)
[2021-07-24] MEDS ORDERED: Propofol 200 MG/20 ML SDV ONE ×2 (07:16→08:24)
--- NOTE | 2021-07-24 08:44 | PCM.POSTAN ---
POST ANESTHESIA ASSESSMENT - MENTAL STATUS Mental Status: Somnolent - VITAL SIGNS Vital Signs: Last Vital Signs Temp 97.9 F 07/24/21 06:35 Pulse 76 07/24/21 06:35 Resp 14 07/24/21 06:35 BP 160/91 H 07/24/21 06:35 Pulse Ox 98 07/24/21 06:35 - RESPIRATORY Respiratory Status: Respiratory Rate WNL, Airway Patent, O2 Saturation Stable - CARDIOVASCULAR CV Status: Pulse Rate WNL, Blood Pressure Stable - GASTROINTESTINAL GI Status: No Symptoms - PAIN Free Text/Narrative:: Resting comfortably - POST OP HYDRATION Hydration Status: Adequate & Stable
--- NOTE | 2021-07-24 08:44 | PCM.OPNOTE ---
- General Post-Op/Procedure Note Date of Surgery/Procedure: 07/24/21 Operative Procedure(s): Diagnostic colonoscopy with polypectomy Findings: transverse colon polyps x 2 Pre Op Diagnosis: History of colon polyps Post-Op Diagnosis: Transverse colon polyp x 2 Anesthesia Technique: MAC Primary Surgeon: Monserrat Clark Condition: Good
--- NOTE | 2021-07-24 09:01 | PCM48HPAN ---
Post Anesthesia Note - EVALUATION WITHIN 48HRS OF ANESTHETIC Vital Signs in Normal Range: Yes Patient Participated in Evaluation: Yes Respiratory Function Stable: Yes Airway Patent: Yes Cardiovascular Function Stable: Yes Hydration Status Stable: Yes Pain Control Satisfactory: Yes Nausea and Vomiting Control Satisfactory: Yes Mental Status Recovered: Yes Vital Signs: Last Vital Signs Temp 98.4 F 07/24/21 08:38 Pulse 59 L 07/24/21 08:48 Resp 14 07/24/21 08:48 BP 99/56 L 07/24/21 08:48 Pulse Ox 96 07/24/21 08:48 - COMMENTS/OBSERVATIONS Free Text/Narrative:: Pt doing well post-op. VSS. No apparent anesthetic complications. Dr. Faizan Crisostomo
[2021-07-24 09:13] VITALS: BP 124/75; PULSE 60
--- NOTE | 2021-07-24 14:05 | OR ---
SURGEON: MONSERRAT CLARK MD DATE OF PROCEDURE: 07/24/2021 PREOPERATIVE DIAGNOSIS: History of colon polyps. POSTOPERATIVE DIAGNOSIS: Transverse colon polyp x2. PROCEDURE PERFORMED: Diagnostic colonoscopy with polypectomy. PRIMARY SURGEON: Monserrat Clark MD ANESTHESIA: MAC. INSTRUMENT USED: Olympus colonoscope. EXTENT OF EXAM: To the cecum. PREPARATION: Good. LIMITATIONS: None. INDICATIONS FOR EXAMINATION: The patient is a 65-year-old male with end-stage renal disease, on dialysis, who presented last year for screening colonoscopy. He was found to have multiple polyps throughout his colon. The decision was made to proceed with a repeat colonoscopy this year. I explained the procedure, expected perioperative course, and the risks. He verbalized understanding and wishes to proceed. PROCEDURE IN DETAIL: The patient was brought in to the endoscopy suite and placed in a left lateral decubitus position. A time-out was completed verifying the patient's name, age, date of , allergies, and procedure to be performed. Monitored anesthesia care was induced and continuous oxygen was provided via face mask throughout the procedure. After adequate sedation was achieved, a digital rectal exam was performed. This exam was within normal limits. A well-lubricated colonoscope was inserted into the rectum and advanced under direct visualization to the level of the cecum. The cecum was identified by both visual and anatomic landmarks. A photograph was taken of the cecal cap, however, I was unable to retroflex the scope within the cecum due to looping of the scope more proximally. The scope was then fully withdrawn while examining the color, texture, anatomy, and integrity of the mucosa from the cecum to the anal canal. The patient was found to have two small sessile polyps within the transverse colon. A photograph of one of these was taken. These were removed in piecemeal fashion using cold biopsy forceps. The remainder of the colon appeared normal. The scope was brought into the rectum and retroflexed to allow visualization of the anal canal opening. The patient did have some mildly enlarged internal hemorrhoids, but otherwise everything appeared normal. A photograph of this was taken. The scope was then straightened out and fully withdrawn. The cecum to anus time was 19 minutes. The patient was awoken and taken to PACU in stable condition. ENDOSCOPIC DIAGNOSIS: Transverse colon polyp x2. RECOMMENDATION: Follow up in clinic in two weeks. KEYLA MILLS /[id number]
== END 2021-07-24 09:14 | disposition home or self-care (01) ==
LOC: MW.SDS 06:05
PROVIDERS: ATTEND Surgery
DX: Z12.11 Encounter for screening for malignant neoplasm of colon (principal); D12.3 Benign neoplasm of transverse colon; N18.6 End stage renal disease; Z99.2 Dependence on renal dialysis; I12.9 Hypertensive chronic kidney disease with stage 1 through stage 4 chronic kidney disease, or unspecified chronic kidney disease; E78.5 Hyperlipidemia, unspecified; Z79.899 Other long term (current) drug therapy; Z98.890 Other specified postprocedural states; Z87.891 Personal history of nicotine dependence
CPT/HCPCS: 45380; J2704; J3010; 00811